=== PATIENT | female | born 1975 | race Caucasian/White ===

== ENCOUNTER 2017-01-07 23:46 | Inpatient (IN) | payer MEDICARE, MEDICAID ==
--- NOTE | 2017-01-08 00:22 | C.PDOC ---
History Of Present Illness Patient is a 41 year old female who is a transfer from [place] who presents to the ER for psychiatric admission under Dr. Toribio. Patient is bipolar with psychotic features. Patient states she is depressed. Denies suicidal ideation or any physical complaints. Time Seen by Provider: 01/08/17 00:07 Chief Complaint (Nursing): Psychiatric Evaluation History Per: Patient History/Exam Limitations: no limitations Onset/Duration Of Symptoms: Hrs Current Symptoms Are (Timing): Still Present Suicide/Self Injury Attempted (Context): None Modifying Factor(s): None Associated Symptoms: Depression Past Medical History Reviewed: Historical Data, Nursing Documentation, Vital Signs Vital Signs: Last Vital Signs Temp 98.3 F 01/08/17 00:01 Pulse 77 01/08/17 00:01 Resp 20 01/08/17 00:01 BP 119/75 01/08/17 00:01 Pulse Ox 98 01/08/17 00:26 - Medical History PMH: Bipolar Disorder, Depression, Schizophrenia Surgical History: No Surg Hx Family History: States: Unknown Family Hx - Social History Hx Alcohol Use: Yes Hx Substance Use: No - Immunization History Hx Tetanus Toxoid Vaccination: No Hx Influenza Vaccination: No Hx Pneumococcal Vaccination: No Review Of Systems Constitutional: Negative for: Fever, Chills Gastrointestinal: Negative for: Nausea, Vomiting, Diarrhea Psych: Positive for: Depression. Negative for: Suicidal ideation Physical Exam - Physical Exam Appears: Well, Non-toxic, No Acute Distress Skin: Normal Color, Warm, Dry Head: Atraumatic, Normacephalic Eye(s): bilateral: Normal Inspection, PERRL, EOMI Oral Mucosa: Moist Chest: Symmetrical, No Tenderness Cardiovascular: Rhythm Regular, No Murmur Respiratory: Normal Breath Sounds, No Rales, No Rhonchi, No Wheezing Gastrointestinal/Abdominal: Soft, No Tenderness Neurological/Psych: Oriented x3, Normal Speech, Normal Cognition ED Course And Treatment O2 Sat by Pulse Oximetry: 98 (Room air) Pulse Ox Interpretation: Normal Disposition - Disposition Disposition: HOSPITALIZED Disposition Time: 00:27 Condition: STABLE - Clinical Impression Clinical Impression: Bipolar disorder with psychotic features - Scribe Statement The provider has reviewed the documentation as recorded by the Scribe Justino Julien All medical record entries made by the Scribe were at my direction and personally dictated by me. I have reviewed the chart and agree that the record accurately reflects my personal performance of the history, physical exam, medical decision making, and the department course for this patient. I have also personally directed, reviewed, and agree with the discharge instructions and disposition.
--- NOTE | 2017-01-08 09:54 | PCM.PSYCH ---
Initial Psychiatric Evaluation - Initial Psychiatric Evaluation Type of Admission: Voluntary Legal Status: Capacity Chief Complaint (in patient's own words): 'I stopped taking my medications' Patient's Reaction to Hospitalization: Patient is a 41 year old [place] female who lives with her mother in [place]. 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 She was escorted to the hospital in a very disorganized and manic state. Patient remained disorganized and manic throughout the interview. Pt. reports she got drunk for the first time 2 days ago after drinking 2 rolling rock beers , and was dancing outside her house on a bench for 6 hours, from 6 pm to midnight. She states that she had her walkman in and was singing and dancing to herself and hadn't ever had that much fun. Pt states her mother called her inside and called 911. Pt was taken to [place] and then transferred to [facility]. Patient reports that she last saw her psychiatrist - Dr. Doreen Bolden in [place] - 5 weeks ago. Patient reports that she "wants him" and wants to make herself look beautiful for him. Pt states she stopped her haldol because it was making her "too much of an intellectual, and guys don't like intellectuals. I also threw out my glasses because guys don't like girls that look smart. 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 She is seen running, jumping, and dancing the hallways and loudly singing in group activities. She pretended to be a doctor and stated that the conference room was her new office. She presents with a flight of ideas and pressured speech, however her speech is coherent and organized. Pt denies any hallucinations. PMH None reported Current Medications: Active Medications Generic Name Dose Route Start Last Admin Trade Name Freq PRN Reason Stop Dose Admin Benztropine Mesylate 1 mg 01/08/17 10:00 Cogentin PO BID SARITA Haloperidol 7.5 mg 01/08/17 10:00 Haldol PO DAILY SARITA Haloperidol 5 mg 01/08/17 22:00 Haldol PO HS SARITA Lorazepam 0.5 mg 01/08/17 10:00 Ativan PO BID SARITA Trazodone HCl 50 mg 01/08/17 00:59 01/08/17 01:53 Desyrel PO 50 mg HS SARITA Administration Past Psychiatric History - Past Psychiatric History Previous Treatment History: Inpatient Pertinent Medical Hx (Current Medical&Sleep Prob, Allergies): Allergies Allergy/AdvReac Type Severity Reaction Status Date / Time clozapine [From Clozaril] Allergy Unknown SHORTNESS Verified 01/08/17 01:17 OF BREATH Benztropine [Benztropine Mesylate] 0.5 mg PO BID 01/08/17 Brexpiprazole [Rexulti] 0.5 mg PO DAILY 01/08/17 Carvedilol [Coreg] 12.5 mg PO BID 01/08/17 Haloperidol [Haldol] 5 mg PO BID 01/08/17 Lisinopril [Zestril] 5 mg PO DAILY 01/08/17 Lorazepam [Ativan] 0.5 mg PO DAILY 01/08/17 lamoTRIgine [LaMICtal] 25 mg PO DAILY 01/08/17 Review of Systems - Review of Systems All systems: reviewed and no additional remarkable complaints except - Psychiatric Psychiatric: Anxiety, Irritability, Mood Swings Mental Status Examination - Personal Presentation Personal Presentation: Looks older than stated age - Affect Affect: Broad - Motor Activity Motor Activity: Psychomotor Agitation - Reliability in Providing Information Reliability in Providing Information: Poor, due to alteration in thoughts, Poor , due to altered mood - Speech Speech: Disorganized - Mood Mood: Anxious - Formal Thought Process Formal Thought Process: Delusions, Paranoia, Loosening of associations, Flight of ideas, Circumstantial - Obsessions/Compulsions Obsessions: No Compulsions: No - Cognitive Functions Orientation: Person, Place, Situation, Time Sensorium: Alert Attention/Concentration: Attentive Abstract Thinking: Atkins Estimate of Intelligence: Below average Judgement: Imparied, as evidence by: Poor judgement, Imparied, as evidence by: Lack of insight into illness - Risk Risk: Diminished functioning - Strength & Assets Inventory Strength & Assets Inventory: Family support DSM 5 DX - DSM 5 DSM 5 Diagnosis: Bipolar 1 disorder most recent episode manic severe with psychotic features Alcohol use disorder severe Alcohol withdrawal uncomplicated - Recommended/Plan of Treatment Treatment Recommendations and Plan of Treatment: Bipolar 1 disorder most recent episode manic severe with psychotic features CBT Psychoeducation Supportive therapy, group therapy, individual therapy Haldol 5 mg by mouth twice a day Cogentin 1 mg by mouth twice a day Depakote 250 mg by mouth 2 times a day Klonopin 1 mg by mouth twice a day Trazodone 50 mg by mouth daily at bedtime Alcohol use disorder severe CBT Psychoeducation Supportive therapy, individual therapy Use [place] for abstinence Alcohol withdrawal uncomplicated CBT Psychoeducation Supportive therapy, individual therapy Ativan when necessary Start folic acid/thiamine/multivitamin - Smoking Cessation Smoking Cessation Initiated: No
[2017-01-08] MEDS: Divalproex 250 mg DR Tab PO SCH ×2 (10:21→17:34)
[2017-01-08] MEDS ORDERED: traZODone 25 mg Tab PO SCH (22:00)
[2017-01-09] MEDS: Divalproex 250 mg DR Tab PO SCH (09:54)
--- NOTE | 2017-01-09 12:27 | PCM.PYCHPN ---
Psychiatric Progress Note - Psychiatric Progress Note Patient seen today, length of contact: 17 min Patient Chief Complaint: 'I am feeling a lot better' Problems Identified/Issues Discussed: Patient seen in hallway saluting physicians and calling them "captain." She remained disorganized and internally preoccupied. Patient seen doing kicks while walking down the hallway. Patient states she is feeling much better and that her medication is helping. She states that the haldol is helping her psychosis and the depakote is lowering her energy and making her less hyper. She understands that she cannot do ballet in the hallways. Patient states she slept well and is not experiencing any side effects with her medications. She states she does not want to be on cogentin, but is asking for a 14 mg nicotine patch. She remained paranoid and delusional. Upon discharge, patient says she understands she cannot dance and sing outside and plans to do them in her house. She also understands she cannot drink alcohol outside and plans to do that in her house. Social work looking into programs near the patient's house in [place]. She is taking medications and denies any side effects. Medication Change: Yes (increase depakote, increase haldol) Medical Record Reviewed: Yes Mental Status Examination - Cognitive Function Orientation: Person, Place, Situation, Time Memory: Intact Attention: Poor Concentration: Poor Association: Loose Fund of Knowledge: Poor - Mood Mood: Anxious - Affect Affect: Broad - Speech Speech: Soft - Formal Thought Process Formal Thought Process: Delusions, Paranoia, Loosening of associations, Flight of ideas, Circumstantial - Suicidal Ideation Suicidal Ideation: No - Homicidal Ideation Homicidal Ideation: No Goal/Treatment Plan - Goal/Treatment Plan Need for Continued Stay: Discharge may exacerbated symptoms, Severe functional impairment Progress Toward Problem(s) and Goals/Treatment Plan: Bipolar 1 disorder most recent episode manic severe with psychotic features CBT Psychoeducation Supportive therapy, group therapy, individual therapy Haldol 10 mg by mouth twice a day Cogentin 1 mg by mouth twice a day Depakote 500 mg by mouth 2 times a day Klonopin 1 mg by mouth twice a day Trazodone 50 mg by mouth daily at bedtime Alcohol use disorder severe CBT Psychoeducation Supportive therapy, individual therapy Use [place] for abstinence Alcohol withdrawal uncomplicated CBT Psychoeducation Supportive therapy, individual therapy Ativan when necessary Start folic acid/thiamine/multivitamin - Smoking Cessation Smoking Cessation Initiated: No
[2017-01-09] MEDS: Divalproex 500 mg DR Tab PO SCH (17:34)
[2017-01-10] MEDS: Divalproex 500 mg DR Tab PO SCH ×2 (09:10→17:40)
--- NOTE | 2017-01-10 17:55 | PCM.PYCHPN ---
Psychiatric Progress Note - Psychiatric Progress Note Patient seen today, length of contact: 15 minutes Patient Chief Complaint: I'm better than before Problems Identified/Issues Discussed: Patient seen. Chart reviewed. Case discussed with the staff. Issues related to illness and treatment were discussed with the patient. Reported compliant with treatment with no adverse affects. Tolerating treatment very well. Patient reported feeling better with the treatment. Staff noticed that patient was dancing in the hallway briefly. If needed will increase the dose of Depakote tomorrow. At the time of evaluation, patient was awake alert oriented 3, had no delusions, no auditory or visual hallucinations, no suicidal ideations or homicidal ideations. Medical Problems: None reported Diagnostic Results: Reviewed DSM 5 Symptoms Update: Improving with treatment Medication Change: No Medical Record Reviewed: Yes Mental Status Examination - Cognitive Function Orientation: Person, Place, Situation, Time Memory: Intact Attention: WNL Concentration: WNL Association: WNL Fund of Knowledge: [facility] Decription of patient's judgement and insights: Fair - Mood Mood: Euphoric - Affect Affect: Other (Appropriate) - Speech Speech: Appropriate - Formal Thought Process Formal Thought Process: Loosening of associations - Suicidal Ideation Suicidal Ideation: No - Homicidal Ideation Homicidal Ideation: No Goal/Treatment Plan - Goal/Treatment Plan Need for Continued Stay: Remain at risks for inpatient hospitalization, Discharge may exacerbated symptoms, Severe functional impairment Progress Toward Problem(s) and Goals/Treatment Plan: Patient education Supportive therapy Continue treatment as before Estimated Date of D/C: 01/13/17 - Smoking Cessation Smoking Cessation Initiated: No Reason for not providing: Patient refused
[2017-01-11] MEDS: Divalproex 500 mg DR Tab PO SCH ×2 (09:18→17:28)
--- NOTE | 2017-01-11 15:56 | PCM.PYCHPN ---
Psychiatric Progress Note - Psychiatric Progress Note Patient seen today, length of contact: 15 minutes Patient Chief Complaint: I'm better than before Problems Identified/Issues Discussed: Patient seen. Chart reviewed. Case discussed with the staff. Issues related to illness and treatment were discussed with the patient. Reported compliant with treatment with no adverse affects. Tolerating treatment very well. Patient reported feeling better with the treatment.patient appeared more calm .had some questions about Haldol. Education provided to the patient about medication. Will order a Depakote level today. Also requested for nicotine patch as patient was smoking one and a half pack of cigarettes daily. At the time of evaluation, patient was awake alert oriented 3, had no delusions, no auditory or visual hallucinations, no suicidal ideations or homicidal ideations. Medical Problems: None reported Diagnostic Results: Reviewed DSM 5 Symptoms Update: Improving with treatment Medication Change: No Medical Record Reviewed: Yes Mental Status Examination - Cognitive Function Orientation: Person, Place, Situation, Time Memory: Intact Attention: WNL Concentration: WNL Association: WNL Fund of Knowledge: [facility] Decription of patient's judgement and insights: Fair - Mood Mood: Euphoric - Affect Affect: Other (Appropriate) - Speech Speech: Appropriate - Formal Thought Process Formal Thought Process: Loosening of associations Psychotic Thoughts and Behaviors: None - Suicidal Ideation Suicidal Ideation: No - Homicidal Ideation Homicidal Ideation: No Goal/Treatment Plan - Goal/Treatment Plan Need for Continued Stay: Remain at risks for inpatient hospitalization, Discharge may exacerbated symptoms, Severe functional impairment Progress Toward Problem(s) and Goals/Treatment Plan: Patient education Supportive therapy Continue treatment as before Depakote level today Estimated Date of D/C: 01/13/17 - Smoking Cessation Smoking Cessation Initiated: Yes
[2017-01-12] MEDS: Divalproex 500 mg DR Tab PO SCH (09:46)
--- NOTE | 2017-01-12 10:01 | PCM.PYCHPN ---
Psychiatric Progress Note - Psychiatric Progress Note Patient seen today, length of contact: 15 minutes Patient Chief Complaint: 'I feel much better.' Problems Identified/Issues Discussed: Patient seen and evaluated, chart reviewed and discussed with the nurse. Today patient remained disorganized and internally preoccupied. She remained very energetic and still running in the hallways and dancing in the dining room. She still marching and kicking while walking down the hallway. She remained manic and hyperactive. When asked how she is feeling she mentioned, ' she is feeling much better and that her medications are helping.' However as per the staff, she still delusional and psychotic. However she remained cooperative and redirectable. She is taking medications and denies any side effects. Medication Change: Yes (Increase Depakote, Haldol Decanoate) Medical Record Reviewed: Yes Mental Status Examination - Cognitive Function Orientation: Person, Place, Situation, Time Memory: Intact Attention: WNL Concentration: Poor Association: Loose Fund of Knowledge: WNL - Mood Mood: Euphoric - Affect Affect: Broad - Speech Speech: Loud, Pressured - Formal Thought Process Formal Thought Process: Delusions, Paranoia, Loosening of associations, Flight of ideas, Circumstantial - Suicidal Ideation Suicidal Ideation: No - Homicidal Ideation Homicidal Ideation: No Goal/Treatment Plan - Goal/Treatment Plan Need for Continued Stay: Remain at risks for inpatient hospitalization, Discharge may exacerbated symptoms, Severe functional impairment Progress Toward Problem(s) and Goals/Treatment Plan: Bipolar 1 disorder most recent episode manic severe with psychotic features CBT Psychoeducation Supportive therapy, group therapy, individual therapy Haldol 10 mg by mouth twice a day Haldol Decanoate 50 mg IM stat Cogentin 1 mg by mouth twice a day Depakote 500 mg by mouth Daily Depakote 750 mg by mouth QPM Klonopin 1 mg by mouth twice a day Trazodone 50 mg by mouth daily at bedtime Alcohol use disorder severe CBT Psychoeducation Supportive therapy, individual therapy Use [place] for abstinence Alcohol withdrawal uncomplicated CBT Psychoeducation Supportive therapy, individual therapy Ativan when necessary Start folic acid/thiamine/multivitamin Estimated Date of D/C: 01/13/17 - Smoking Cessation Smoking Cessation Initiated: No
[2017-01-12] MEDS: Divalproex 250 mg DR Tab PO SCH (17:07)
[2017-01-13] MEDS: Divalproex 500 mg DR Tab PO SCH (09:40)
--- NOTE | 2017-01-13 15:01 | PCM.PYCHPN ---
Psychiatric Progress Note - Psychiatric Progress Note Patient seen today, length of contact: 15 minutes Patient Chief Complaint: 'I feel okay.' Problems Identified/Issues Discussed: Patient seen and evaluated, chart reviewed and discussed with the nurse. Today patient remained disorganized and internally preoccupied. She remained very energetic and still running in the hallways and dancing in the dining room. She still marching and kicking while walking down the hallway. She remained manic and hyperactive. When asked how she is feeling she mentioned, ' she is feeling much better and that her medications are helping.' However as per the staff, she still delusional and psychotic. However she remained cooperative and redirectable. She is taking medications and denies any side effects. Medication Change: No Medical Record Reviewed: Yes Mental Status Examination - Cognitive Function Orientation: Person, Place, Situation, Time Memory: Intact Attention: WNL Concentration: WNL Association: WNL Fund of Knowledge: WNL - Mood Mood: Euphoric - Affect Affect: Other (Appropriate) - Speech Speech: Appropriate - Formal Thought Process Formal Thought Process: Loosening of associations - Suicidal Ideation Suicidal Ideation: No - Homicidal Ideation Homicidal Ideation: No Goal/Treatment Plan - Goal/Treatment Plan Need for Continued Stay: Remain at risks for inpatient hospitalization, Discharge may exacerbated symptoms, Severe functional impairment Progress Toward Problem(s) and Goals/Treatment Plan: Bipolar 1 disorder most recent episode manic severe with psychotic features CBT Psychoeducation Supportive therapy, group therapy, individual therapy Haldol 10 mg by mouth twice a day Haldol Decanoate 50 mg IM stat Cogentin 1 mg by mouth twice a day Depakote 500 mg by mouth Daily Depakote 750 mg by mouth QPM Klonopin 1 mg by mouth twice a day Trazodone 50 mg by mouth daily at bedtime Alcohol use disorder severe CBT Psychoeducation Supportive therapy, individual therapy Use [place] for abstinence Alcohol withdrawal uncomplicated CBT Psychoeducation Supportive therapy, individual therapy Ativan when necessary Start folic acid/thiamine/multivitamin Estimated Date of D/C: 01/13/17
[2017-01-13] MEDS: Divalproex 250 mg DR Tab PO SCH (18:18)
[2017-01-14] MEDS: Divalproex 500 mg DR Tab PO SCH (09:44)
--- NOTE | 2017-01-14 09:45 | PCM.PYCHPN ---
Psychiatric Progress Note - Psychiatric Progress Note Patient seen today, length of contact: 15 minutes Patient Chief Complaint: 'I feel okay.' Problems Identified/Issues Discussed: Patient seen and evaluated, chart reviewed and discussed with the nurse. The patient remains energetic and felt fine until she heard from someone that she was being discharged next week instead of this Thursday. She immediately began sobbing hysterically, disrupting one of the group activities. She was not easily consoled and insisted on leaving Thursday because she is afraid for her elderly mother to be doing things on her own. She denies any auditory or visual hallucinations, H/I, S/I, or difficulty sleeping and states that the medications have helped, denying any side effects. She appears to still have disorganized thoughts and her clothes appear disorganized as well. She keeps her room in disarray with food, trash, and laundry scattered. Her affect is appropriate but she continues to be hyperactive at times and has a flight of ideas. She is social and does not isolate herself from the other patients. Medication Change: No Medical Record Reviewed: Yes Mental Status Examination - Cognitive Function Orientation: Person, Place, Situation, Time Memory: Intact Attention: Poor Concentration: Poor Association: Loose Fund of Knowledge: Poor - Mood Mood: Euphoric, Other (labile) - Affect Affect: Other (labile) - Speech Speech: Pressured (labile) - Formal Thought Process Formal Thought Process: Delusions, Paranoia, Loosening of associations, Flight of ideas - Suicidal Ideation Suicidal Ideation: No - Homicidal Ideation Homicidal Ideation: No Goal/Treatment Plan - Goal/Treatment Plan Need for Continued Stay: Remain at risks for inpatient hospitalization, Discharge may exacerbated symptoms, Severe functional impairment Progress Toward Problem(s) and Goals/Treatment Plan: Bipolar 1 disorder most recent episode manic severe with psychotic features CBT Psychoeducation Supportive therapy, group therapy, individual therapy Haldol 10 mg by mouth twice a day Haldol Decanoate 50 mg IM stat Cogentin 1 mg by mouth twice a day Depakote 500 mg by mouth Daily Depakote 750 mg by mouth QPM Klonopin 1 mg by mouth twice a day Trazodone 50 mg by mouth daily at bedtime Alcohol use disorder severe CBT Psychoeducation Supportive therapy, individual therapy Use [place] for abstinence Alcohol withdrawal uncomplicated CBT Psychoeducation Supportive therapy, individual [facility] Start folic acid/thiamine/multivitamin Estimated Date of D/C: 01/13/17 - Smoking Cessation Smoking Cessation Initiated: No
[2017-01-14] MEDS: Divalproex 250 mg DR Tab PO SCH (17:36)
[2017-01-15] MEDS: Divalproex 500 mg DR Tab PO SCH (09:39)
--- NOTE | 2017-01-15 10:47 | PCM.PYCHPN ---
Psychiatric Progress Note - Psychiatric Progress Note Patient seen today, length of contact: 15 minutes Patient Chief Complaint: 'I feel tired.' Problems Identified/Issues Discussed: Patient seen and evaluated, chart reviewed and discussed with the nurse. The patient states that she feels tired but claims that she slept the whole night. She denies feelings of depression but states that she is experiencing anxiety. She says that she is anxious about when her discharge date will be and about her future. She wants to go see her psychiatrist but says that he is difficult to get in touch with. She denies S/I, H/I, or hallucinations and says that she has no problems with her medications. She appears to have a calm demeanor and is spending more time lying in bed in her room. She appears disorganized but has appropriate affect. She was hyperactive when discussing her discharge date and seemed worried about having to stay here for much longer. Supportive therapy and psychoeducation were given. Medication Change: Yes (haldol decanoate ) Medical Record Reviewed: Yes Mental Status Examination - Cognitive Function Orientation: Person, Place, Situation, Time Memory: Intact Attention: Poor Concentration: Poor Association: Loose Fund of Knowledge: Poor - Mood Mood: Euphoric, Other (labile) - Affect Affect: Other (labile) - Speech Speech: Pressured (labile) - Formal Thought Process Formal Thought Process: Delusions, Paranoia, Loosening of associations, Flight of ideas - Suicidal Ideation Suicidal Ideation: No - Homicidal Ideation Homicidal Ideation: No Goal/Treatment Plan - Goal/Treatment Plan Need for Continued Stay: Remain at risks for inpatient hospitalization, Discharge may exacerbated symptoms, Severe functional impairment Progress Toward Problem(s) and Goals/Treatment Plan: Bipolar 1 disorder most recent episode manic severe with psychotic features CBT Psychoeducation Supportive therapy, group therapy, individual therapy Haldol 10 mg by mouth twice a day Haldol Decanoate 50 mg IM (Next due 02-12-17) Haldol Decanoate 50 mg I/M Stat Cogentin 1 mg by mouth twice a day Depakote 500 mg by mouth Daily Depakote 750 mg by mouth QPM Klonopin 1 mg by mouth twice a day Trazodone 50 mg by mouth daily at bedtime Alcohol use disorder severe CBT Psychoeducation Supportive therapy, individual therapy Use [place] for abstinence Alcohol withdrawal uncomplicated CBT Psychoeducation Supportive therapy, individual therapy Ativan when necessary Start folic acid/thiamine/multivitamin Estimated Date of D/C: 01/13/17
[2017-01-15] MEDS: Divalproex 250 mg DR Tab PO SCH (17:35)
[2017-01-16] MEDS: Divalproex 500 mg DR Tab PO SCH (10:07)
--- NOTE | 2017-01-16 11:42 | PCM.PYCHPN ---
Psychiatric Progress Note - Psychiatric Progress Note Patient seen today, length of contact: 15 minutes Patient Chief Complaint: 'I feel irritated.' Problems Identified/Issues Discussed: Patient seen and evaluated, chart reviewed and discussed with the nurse. The patient states she is feeling irritated because she wants to go home. She says she is sleeping well without the Trazodone and is having no medication side effects. She says that she no longer has any interest in group activities because she wants to be home. The patient appears to be doing better but is still a bit disheveled and has pressured speech. She is less disorganized in her thoughts and has been spending more time in her room. Supportive therapy and psychoeducation were given. Medication Change: No Medical Record Reviewed: Yes Mental Status Examination - Cognitive Function Orientation: Person, Place, Situation, Time Memory: Intact Attention: Poor Concentration: Poor Association: Loose Fund of Knowledge: Poor - Mood Mood: Depressed, Anxious - Affect Affect: Constricted - Speech Speech: Soft - Formal Thought Process Formal Thought Process: Delusions, Paranoia, Loosening of associations - Suicidal Ideation Suicidal Ideation: No - Homicidal Ideation Homicidal Ideation: No Goal/Treatment Plan - Goal/Treatment Plan Need for Continued Stay: Remain at risks for inpatient hospitalization, Discharge may exacerbated symptoms, Severe functional impairment Progress Toward Problem(s) and Goals/Treatment Plan: Bipolar 1 disorder most recent episode manic severe with psychotic features CBT Psychoeducation Supportive therapy, group therapy, individual therapy Haldol 10 mg by mouth twice a day Haldol Decanoate total of 100 mg (Next due 02-14-17) Cogentin 1 mg by mouth twice a day Depakote 500 mg by mouth Daily Depakote 750 mg by mouth QPM Klonopin 1 mg by mouth twice a day Trazodone 50 mg by mouth daily at bedtime Alcohol use disorder severe CBT Psychoeducation Supportive therapy, individual therapy Use [place] for abstinence Alcohol withdrawal uncomplicated CBT Psychoeducation Supportive therapy, individual therapy Ativan when necessary Start folic acid/thiamine/multivitamin Estimated Date of D/C: 01/13/17 - Smoking Cessation Smoking Cessation Initiated: No
[2017-01-16] MEDS: Divalproex 250 mg DR Tab PO SCH (17:38)
--- NOTE | 2017-01-17 09:50 | PCM.PYCHPN ---
Psychiatric Progress Note - Psychiatric Progress Note Patient seen today, length of contact: 15 minutes Patient Chief Complaint: 'I m feeling much better.' Problems Identified/Issues Discussed: Patient seen and evaluated, chart reviewed and discussed with the nurse. Today pt appears more organized than before. She is spending most of the time in her room and she is not pacing back and forth in the hallways. She is not jumping, running and disrobing herself anymore. She became isolated and confined to her room. She reports improvement in her anxiety and racing of thoughts. She is taking medications and denies any side effects. She is requesting to go home on Thursday. Supportive therapy and psychoeducation were given. Medication Change: No Medical Record Reviewed: Yes Mental Status Examination - Cognitive Function Orientation: Person, Place, Situation, Time Memory: Intact Attention: WNL Concentration: Poor Association: Loose Fund of Knowledge: WNL - Mood Mood: Anxious - Affect Affect: Constricted - Speech Speech: Soft - Formal Thought Process Formal Thought Process: Delusions, Paranoia, Loosening of associations - Suicidal Ideation Suicidal Ideation: No - Homicidal Ideation Homicidal Ideation: No Goal/Treatment Plan - Goal/Treatment Plan Need for Continued Stay: Remain at risks for inpatient hospitalization, Discharge may exacerbated symptoms, Severe functional impairment Progress Toward Problem(s) and Goals/Treatment Plan: Bipolar 1 disorder most recent episode manic severe with psychotic features CBT Psychoeducation Supportive therapy, group therapy, individual therapy Haldol 10 mg by mouth twice a day Haldol Decanoate total of 100 mg (Next due 02-14-17) Cogentin 1 mg by mouth twice a day Depakote 500 mg by mouth Daily Depakote 750 mg by mouth QPM Klonopin 1 mg by mouth twice a day Trazodone 50 mg by mouth daily at bedtime Alcohol use disorder severe CBT Psychoeducation Supportive therapy, individual therapy Use [place] for abstinence Alcohol withdrawal uncomplicated CBT Psychoeducation Supportive therapy, individual therapy Ativan when necessary Start folic acid/thiamine/multivitamin Estimated Date of D/C: 01/13/17
[2017-01-17] MEDS: Divalproex 500 mg DR Tab PO SCH (10:25)
[2017-01-17] MEDS: Divalproex 250 mg DR Tab PO SCH (18:03)
[2017-01-18 07:38] VITALS: O2SAT 99
[2017-01-18] MEDS: Divalproex 500 mg DR Tab PO SCH (09:33)
--- NOTE | 2017-01-18 12:00 | PCM.PYCHPN ---
Psychiatric Progress Note - Psychiatric Progress Note Patient seen today, length of contact: 15 minutes Patient Chief Complaint: 'I m feeling better' Problems Identified/Issues Discussed: Patient seen and evaluated, chart reviewed and discussed with the nurse. Staff states that pt is not jumping, running and laughing inappropriately anymore. She became isolated and withdrawn to her room. She is less internally preoccupied than before and appears more organized. She reports improvement in the racing of thoughts and flight of the ideas. She is taking medications and denies any side effects. Supportive therapy and psychoeducation were given. Medication Change: Yes (d/c cogentin) Medical Record Reviewed: Yes Mental Status Examination - Cognitive Function Orientation: Person, Place, Situation, Time Memory: Intact Attention: WNL Concentration: Poor Association: Loose Fund of Knowledge: WNL - Mood Mood: Anxious - Affect Affect: Constricted - Speech Speech: Soft - Formal Thought Process Formal Thought Process: Delusions, Loosening of associations - Suicidal Ideation Suicidal Ideation: No - Homicidal Ideation Homicidal Ideation: No Goal/Treatment Plan - Goal/Treatment Plan Need for Continued Stay: Discharge may exacerbated symptoms, Severe functional impairment Progress Toward Problem(s) and Goals/Treatment Plan: Bipolar 1 disorder most recent episode manic severe with psychotic features CBT Psychoeducation Supportive therapy, group therapy, individual therapy Haldol 10 mg by mouth twice a day Haldol Decanoate total of 100 mg (Next due 02-14-17) d/c Cogentin 1 mg by mouth twice a day Depakote 500 mg by mouth Daily Depakote 750 mg by mouth QPM Klonopin 1 mg by mouth twice a day Trazodone 50 mg by mouth daily at bedtime Alcohol use disorder severe CBT Psychoeducation Supportive therapy, individual therapy Use [place] for abstinence Alcohol withdrawal uncomplicated CBT Psychoeducation Supportive therapy, individual therapy Ativan when necessary Start folic acid/thiamine/multivitamin Estimated Date of D/C: 01/13/17 - Smoking Cessation Smoking Cessation Initiated: No
[2017-01-18] MEDS: Divalproex 250 mg DR Tab PO SCH (17:37)
[2017-01-19] MEDS: Divalproex 500 mg DR Tab PO SCH (10:13)
--- NOTE | 2017-01-19 12:38 | PCM.PYCHPN ---
Psychiatric Progress Note - Psychiatric Progress Note Patient seen today, length of contact: 16 minutes Patient Chief Complaint: 'I feel enclosed.' Problems Identified/Issues Discussed: Patient seen and evaluated, chart reviewed and discussed with the nurse. The patient states that she feels enclosed because she cant leave or open her windows. She is feeling anxious about her discharge date but denies feelings of depression, any hallucinations, S/I, or H/I. Also she says that she feels terrified because of the drug users that are now on the psych floor and wishes not to interact with the patients anymore. The patient appears slightly kempt and has less pressured speech. She has an appropriate affect and appears to be doing much better. Her thoughts are less disorganized. Supportive therapy and psychoeducation were given. Medication Change: No Medical Record Reviewed: Yes Mental Status Examination - Cognitive Function Orientation: Person, Place, Situation, Time Memory: Intact Attention: WNL Concentration: Poor Association: Loose Fund of Knowledge: WNL - Mood Mood: Anxious - Affect Affect: Constricted - Speech Speech: Soft - Formal Thought Process Formal Thought Process: Delusions, Paranoia, Loosening of associations - Suicidal Ideation Suicidal Ideation: No - Homicidal Ideation Homicidal Ideation: No Goal/Treatment Plan - Goal/Treatment Plan Need for Continued Stay: Remain at risks for inpatient hospitalization, Discharge may exacerbated symptoms, Severe functional impairment Progress Toward Problem(s) and Goals/Treatment Plan: Bipolar 1 disorder most recent episode manic severe with psychotic features CBT Psychoeducation Supportive therapy, group therapy, individual therapy Haldol 10 mg by mouth twice a day Haldol Decanoate total of 100 mg (Next due 02-14-17) Cogentin 1 mg by mouth twice a day Depakote 500 mg by mouth Daily Depakote 750 mg by mouth QPM Klonopin 1 mg by mouth twice a day Trazodone 50 mg by mouth daily at bedtime Alcohol use disorder severe CBT Psychoeducation Supportive therapy, individual therapy Use [place] for abstinence Alcohol withdrawal uncomplicated CBT Psychoeducation Supportive therapy, individual therapy Ativan when necessary Start folic acid/thiamine/multivitamin Estimated Date of D/C: 01/13/17
[2017-01-19] MEDS: Divalproex 250 mg DR Tab PO SCH (17:17)
[2017-01-20] MEDS ORDERED: Aluminum Hydroxide/Magnesium Hydroxide Susp (30 mL) PO PRN (03:37)
--- NOTE | 2017-01-20 09:54 | PCM.PYCHDC ---
Mental Status Examination - Mental Status Examination Orientation: Person, Place, Situation, Time Memory: Intact Mood: Euphoric Affect: Constricted Speech: Soft Attention: WNL Concentration: WNL Association: WNL Fund of Knowledge: WNL Formal Thought Process: No Impairment Description of patient's judgement and insight: good, fair Psychotic Thoughts and Behaviors: denies any AVH Suicidal Ideation: No Current Homicidal Ideation?: No Discharge Summary - Discharge Note Reason for Hospitalization: Patient is a 41 year old Boomer-Hungarian female who lives with her mother in [place]. 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 She was escorted to the hospital in a very disorganized and manic state. Patient remained disorganized and manic throughout the interview. Pt. reports she got drunk for the first time 2 days ago after drinking 2 rolling rock beers , and was dancing outside her house on a bench for 6 hours, from 6 pm to midnight. She states that she had her walkman in and was singing and dancing to herself and hadn't ever had that much fun. Pt states her mother called her inside and called 911. Pt was taken to [place] and then transferred to [facility]. Patient reports that she last saw her psychiatrist - Dr. Doreen Bolden in [place] - 5 weeks ago. Patient reports that she "wants him" and wants to make herself look beautiful for him. Pt states she stopped her haldol because it was making her "too much of an intellectual, and guys don't like intellectuals. I also threw out my glasses because guys don't like girls that look smart. 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 She is seen running, jumping, and dancing the hallways and loudly singing in group activities. She pretended to be a doctor and stated that the conference room was her new office. She presents with a flight of ideas and pressured speech, however her speech is coherent and organized. Pt denies any hallucinations. Consultations:: List each consultation separately and include: 1. Reason for request. 2. Findings. 3. Follow-up Summary of Hospital Course include:: 1. Description of specific treatment plan utilized for patients during their course of treatmen. 2. Summarize the time- course for resolution of acute symptoms and/or regressed behaviors. 3. Describe issues identified and worked on during hospitalization. 4. Describe medication utilized. 5. Describe medical problems identified and treated. 6. Reassessment of suicide risk - Final Diagnosis (DSM 5) Condition upon Discharge: STABLE DSM 5: Bipolar 1 disorder most recent episode manic severe with psychotic features Alcohol use disorder severe Alcohol withdrawal uncomplicated Disposition: HOME/ ROUTINE Follow-up Treatment Plan: Bipolar 1 disorder most recent episode manic severe with psychotic features CBT Psychoeducation Supportive therapy, group therapy, individual therapy Haldol 10 mg by mouth twice a day Haldol Decanoate total of 100 mg (Next due 02-14-17) Cogentin 1 mg by mouth twice a day Depakote 500 mg by mouth Daily Depakote 750 mg by mouth QPM Klonopin 1 mg by mouth twice a day Trazodone 50 mg by mouth daily at bedtime Alcohol use disorder severe CBT Psychoeducation Supportive therapy, individual therapy Use [place] for abstinence Alcohol withdrawal uncomplicated CBT Psychoeducation Supportive therapy, individual therapy Ativan when necessary Start folic acid/thiamine/multivitamin Prescriptions/Medication Reconciliation: Benztropine [Cogentin] 1 mg PO BID #60 tab Divalproex [Depakote DR] 250 mg PO QPM #30 tcp Divalproex [Depakote DR] 500 mg PO BID #60 tcp Haloperidol [Haldol] 10 mg PO BID #60 tab traZODone [Desyrel] 50 mg PO HS PRN #30 tab PRN Reason: Insomnia - Smoking Cessation Smoking Cessation Medication prescribed: No - Antipsychotic Medications Pt discharged on 2 or more routine antipsychotic medications: No
[2017-01-20] MEDS: Divalproex 500 mg DR Tab PO SCH (10:00)
[2017-01-20 10:39] VITALS: BP 131/81; PULSE 81; RESP 18; TEMP 98.1
== END 2017-01-20 11:10 | disposition home or self-care (01) | DRG 885 ==
LOC: C.ER 23:46 → C.5E 01-08 00:20
PROVIDERS: ADMIT Psychiatry & Neurology Psychiatry; ATTEND Psychiatry & Neurology Psychiatry
PROC: GZ3ZZZZ Medication Management (ICD-10-PCS; principal; 2017-01-08)
PROC: GZHZZZZ Group Psychotherapy (ICD-10-PCS; 2017-01-08)
PROC: GZ56ZZZ Individual Psychotherapy, Supportive (ICD-10-PCS; 2017-01-08)
PROC: HZ99ZZZ Pharmacotherapy for Substance Abuse Treatment, Other Replacement Medication (ICD-10-PCS; 2017-01-08)
DX: F31.2 Bipolar disorder, current episode manic severe with psychotic features (principal); F10.239 Alcohol dependence with withdrawal, unspecified